=== PATIENT | female | born 1930 | race Caucasian/White ===

== ENCOUNTER 2016-10-06 06:21 | Emergency (ER) | payer MEDICARE, BC ==
--- NOTE | 2016-10-06 06:43 | ERNOTE ---
Abdominal HPI - Narrative Date of Service: 10/06/16 - General Chief Complaint: Abdominal Pain Time Seen by Provider: 10/06/16 06:38 Source: patient, other - accompanied by son Exam Limitations: no limitations - Immun/Allergies/Home Medications Immunizatons: IMMUNIZATION HX Immunizations Up to Date Yes History of Influenza Vaccine Yes Hx Pneumococcal Vaccination Yes Allergies/Adverse Reactions: Allergies Unobtainable Allergy (Unverified 10/06/16 06:36) Home Medications: HOME MEDICATIONS ALPRAZolam [Xanax] 0.25 mg PO BID 10/06/16 [Last Taken Unknown] Albuterol Sulfate [Ventolin HFA] 2 puff INH PRN PRN 10/06/16 [Last Taken Unknown ] Atenolol [Tenormin] 50 mg PO DAILY 10/06/16 [Last Taken Unknown] Budesonide/Formoterol Fumarate [Symbicort 80-4.5 Mcg Inhaler] 10.2 gm IH BID 02/14 [Last Taken Unknown] Calcium Carb/Magnesium Hydrox [Antacid Chewable Tablet] 1 tab PO DAILY 10/06/16 [Last Taken Unknown] Calcium Polycarbophil [Fiber Laxative] 625 mg PO DAILY 10/06/16 [Last Taken Unknown] Cholestyramine/Aspartame [Cholestyramine Light Packet] 1 dose PO DAILY 10/06/16 [Last Taken Unknown] Diltiazem HCl [Cartia Xt] 180 mg PO DAILY 10/06/16 [Last Taken Unknown] HYDROcodone/ACETAMINOPHEN [Lortab 5-325 mg Tablet] 1 each PO TID PRN #15 tablet 10/06/16 [Last Taken Unknown] Ipratropium/Albuterol Sulfate [Iprat-Albut 0.5-3(2.5) mg/3 ml] 3 ml IH QID PRN 10/06/16 [Last Taken Unknown] Latanoprost [Xalatan] 1 drop EACHEYE HS 10/06/16 [Last Taken Unknown] Pravastatin Sodium 40 mg PO HS 10/06/16 [Last Taken Unknown] Saccharomyces Boulardii [Florastor] 250 mg PO TID 10/06/16 [Last Taken Unknown] Vitamin D3 1 cap PO DAILY 10/06/16 [Last Taken Unknown] - History of Present Illness Narrative: Patient presents to ED her for pain in the stomach she was just seen in [place] ED and records reviewed. Patient's records from ED visit on 10/04/2016[facility] are reviewed: CT of chest was done and peribronchial thickening and emphysematos changes of lungs, no evidence of lobar pneumonia, compression frx of T 9 likely chronic, notable leukocytosis, treated with antibiotics, prednisone taper and antibiotic completed. Date (Duration): 10/06/16 Time (Timing): 05:00 Timing: getting worse Quality: severe, aching Activities at Onset: none Modifying Factors - (Improves): Present: analgesics Modifying Factors - (Worsens): Present: analgesics Associated Symptoms: Present: nausea - nausea is from morphine pain pill prescribed by other hospital Prior Abdominal Problems: Present: none, other - patient had increased Review of Systems - Narrative Narrative: Patient seen in [place]. She is now currently improving and anticipate will continue to improve. - Review of Systems Constitutional: Present: no symptoms reported EYE: Present: no symptoms reported ENT: Present: no symptoms reported Respiratory: Present: no symptoms reported Cardiology: Present: no symptoms reported Gastrointestinal/Abdominal: Present: nausea, abdominal pain, eating less Genitourinary: Present: no symptoms reported Musculoskeletal: Present: no symptoms reported, other - chornic low back pain espeially in Skin: Present: no symptoms reported Neurological: Present: no symptoms reported Endocrine: Present: no symptoms reported, unexplained weight loss Psych: Present: no symptoms reported - Patient's Past Medical History Patient History - Medical: No pertinent hx Patient History - Cardiac/Respiratory: COPD, Hypertension, Hyperlipidemia Patient History - Cancer: No Hx of Cancer Patient History - Surgical Procedures: Appendectomy, Cholecystectomy Patient History - Other: None - Social History Living Situations: spouse Abuse History: No History of abuse Psych History: No pertinent hx Smoking Status: Current every day smoker Have you smoked in the past 12 months: Yes Do you dip or chew tobacco: No Alcohol Use: none Drug Use: none - Immunizations Immunizations Up to Date: Yes Hx Pneumococcal Vaccination: Yes History of Influenza Vaccine: Yes Physical Exam - Physical Exam General Appearance: Present: wd/wn, no apparent distress, mild distress, other - due to pain in stomache, gi cocktail was not effective, morphine made her nauseated. , Eye Exam: Normal inspection: bilateral Ears, Nose, Throat: Present: normal ENT inspection Neck: Present: normal inspection Respiratory: Present: no respiratory distress, chest nontender Cardiovascular/Chest: Present: regular rate, rhythm, no murmur Gastrointestinal/Abdominal: Present: normal bowel sounds, nontender, no organomegaly Rectal Exam: Present: deferred Back Exam: Present: normal inspection Extremity Exam: Present: normal inspection Neurological Exam: Present: alert, oriented, normal mood/affect Skin Exam: Present: pallor Pelvic Exam: Present: deferred ED Progress - Date and Time Seen: Date and Time: 10/06/16 09:16 Lortab seems to be more effective - Results and Orders Patient's Lab Results:: I have reviewed the patient's lab results. - Vital Signs Patient's Vital Signs:: I have reviewed the patient's vital signs. Vital Signs: Vital Signs 10/06/16 06:28 Temperature 36.7 C Pulse Rate 99 Respiratory 18 Rate Blood Pressure 176/71 O2 Sat by Pulse 94 Oximetry - EKG EKG: NSR EKG read: Interp. by me - Progress/Reassessment Chief Complaint: Abdominal Pain Progress:: Improved - Transfer of Care Physician Sign Out: Chris Mulligan Pending Results: X-ray results - reviewed from [place] Departure - Departure Clinical Impression: Compression fracture, Chronic kidney disease (CKD) stage G3a/A2, moderately decreased glomerular filtration rate (GFR) between 45-59 mL/min/1.73 square meter and albuminuria creatinine ratio between 30-299 mg/g Disposition: Home self-care Condition: Fair Instructions: Spinal Compression Fracture Additional Instructions: see your doctor in 3 to 5 days Referrals: Chris Mulligan MD [Primary Care Provider] - Prescriptions: HYDROcodone/ACETAMINOPHEN [Lortab 5-325 mg Tablet] 1 each PO TID PRN #15 tablet PRN Reason: Analgesia
[2016-10-06] MEDS ORDERED: LIDOCAINE HCL 20 ML UDC MM ONE (06:53)
[2016-10-06] MEDS ORDERED: MAG HYDROX/ALUMINUM HYD/SIMETH 30 ML UDC PO ONE (07:02)
[2016-10-06] MEDS ORDERED: SUCRALFATE 1 G/10 ML UDC PO ONE (07:04)
--- OUTSIDE RECORDS SUMMARY | 2016-10-06 07:16 | XMS REPORT | Continuity of Care Document ---
:1930 Author Organization [facility] ([facility]) Address [address] [place] [address] Phone [phone] Care Team Providers Name Role Phone Chris Mulligan Primary Care Provider [phone] Source Comments This disclosure is being made pursuant to the Care Everywhere program, applicable federal and state laws, and may not contain all informaitonavailable regarding this patient.[facility] ([facility]) Active Allergies and Adverse Reactions Allergen Noted Date Severity Reactions Comments Ciprofloxacin 10/14/2015 High Nausea & Vomiting Current Medications Prescription Sig. Disp. Refills Start Date End Date Status pravastatin 40 mg tablet Take 40 mg by mouth Active at bedtime. ALPRAZolam 0.25 mg Take 0.25 mg by Active tablet mouth 2 times daily as needed. albuterol 90 Use 2 Puffs by Active mcg/Actuation inhaler inhalation every 6 hours as needed. cholecalciferol (VITAMIN Take 1,000 Units by Active D3) 1,000 unit tablet mouth daily. latanoprost 0.005 % Instill 1 Drop onto Active ophthalmic solution both eyes daily. budesonide-formoterol Use 2 Puffs by 10.2 g 1 11/02/2015 Active (SYMBICORT) 80-4.5 inhalation 2 times mcg/Actuation inhaler daily. diltiaZEM 180 mg ER Take 180 mg by Active capsule mouth daily. atenolol 50 mg tablet Take 50 mg by mouth Active daily. calcium carbonate (200 Take 200 mg by Active mg Ca) 500 mg chewable mouth daily. tablet calcium polycarbophil Take 625 mg by Active 625 mg tablet mouth daily. albuterol-ipratropium Use 3 mL by 11 07/12/2016 Active 2.5-0.5 mg/3 mL inhalation every 4 inhalation solution hours as needed for Wheezing or Shortness of breath. Active Problems Problem Noted Date Unintentional weight loss 07/10/2016 Dyspnea on exertion 07/09/2016 Pleural effusion 07/09/2016 HCAP (healthcare-associated pneumonia) 07/09/2016 Acute renal failure on dialysis 10/19/2015 Acute encephalopathy 10/19/2015 GENET (acute kidney injury) 10/15/2015 Overview: Acute dialysis Acute calculous cholecystitis 10/15/2015 Overview: Antibiotics and surgical resection Leukocytosis, unspecified 01/21/2008 Most Recent Encounters Date Type Specialty Providers Description 09/24/2016 Office Visit Med Pulmonary [facility], Chief Comp: Patient Oncology Melanie Valadez MD Reported Reason For Visit 07/09/2016 - Hospital Encounter General Care Shawna Mason, Dx: Acute renal 07/12/2016 Inpatient - Adult MD failure on dialysis Josemanuel Mc, (Primary Dx) Immunizations Name Dates Previously Given Next Due Hepatitis B, adult 11/07/2015 Social History Tobacco Use Types Packs/Day Years Used Date Current Every Day Smoker Cigarettes 0.5 70 Smokeless Tobacco: Never Used Alcohol Use Drinks/Week oz/Week Comments No 0 Standard drinks or equivalent 0.0 Last Filed Vital Signs Vital Sign Reading Time Taken Blood Pressure 112/45 07/12/2016 3:52 PM COIL WRAPPER Pulse 60 07/12/2016 3:52 PM COIL WRAPPER Temperature 36 C (96.8 F) 07/12/2016 3:52 PM COIL WRAPPER Respiratory Rate 18 07/12/2016 3:52 PM COIL WRAPPER Height 1.651 m (5' 5") 07/10/2016 12:38 AM COIL WRAPPER Weight 47.8 kg (105 lb 6.1 oz) 07/12/2016 5:42 AM COIL WRAPPER Body Mass Index 17.54 07/12/2016 5:42 AM COIL WRAPPER Oxygen Saturation 96% 07/12/2016 4:25 AM COIL WRAPPER Plan of Care Health Maintenance Due Date Last Done Comments Tdap Vaccine 1942 Lipid Disorder Screening 1949 Td Vaccine 1949 Colonoscopy 02/22/1981 Zoster Vaccine 1991 Osteoporosis Screening (DXA Bone Density) 02/24/1996 Pneumococcal Vaccine (1 of 2 - PCV13) 02/24/1996 Hepatitis B Vaccine (2 of 3 - Primary Series) 12/05/2015 11/07/2015 Influenza Vaccine: Seasonal (#1) 01/30/2016 Procedures from Last 3 Months Procedure Name Priority Date/Time Associated Comments Diagnosis ABSTRACTED BY Routine 07/17/2016 3:16 PM Pleural effusion Results for this BILLING STAFF COIL WRAPPER procedure are in the results section. Results from Last 3 Months INPATIENT PROCEDURE SERVICE - THORACENTESIS (07/17/2016 3:16 PM) Boby Rahman MD 07/17/20163:16 PM Procedure Note INPATIENT PROCEDURE SERVICE - THORACENTESIS Thoracentesis Procedure Note Procedure Date: 07/10/2016 Operation/Procedure: Left diagnostic thoracentesis Location: Inpatient Unit Primary Diagnosis: pneumonia with para pneumonic effusion Attending Staff: Dr. Felder Resident/Fellow: Marcy Urbano MD Assistants:None Consent for Operation or Procedure: Consent for procedure obtained from patient (or DPOA) on 07/10/2016.Alternatives, risks, side effects, benefits and complications explained in detail and patient was agreeable. Indications: r/o complicated parapnuemonic pleural effusion Procedural Medications:5 cc of 1% Lidocaine Description of Operation/Procedure: Procedural timeout was performed and patient identified with MRN and . Patient was placed in seated position with arms in front resting on table. The upper left back was probed with the ultasound probe and largest collection of fluid was identified. A teri was placed on the skin. The skin was then prepped with chlorhexidine and draped in usual sterile fashion. The skin, subcutaneous tissue, and the pleura were anesthetized with lidocaine using the 22G needle. The pleural space was entered with return of cloudy and yellow fluid. An 11 blade scalpel was used to make a 1 cm incision in the skin. An 18 Gauge needle with 8F catheter was then advanced through incision, over the rib and into pleural space with continous aspiration with return of cloudy and yellow fluid. The catheter was advanced over the needle into the pleural space and needle was withdrawn. A sample of 30 cc of fluid was initially collected for diagnostic studies. A manual bag drainage system was then used to collect fluid for further therapeutic purposes. A total of 200 cc was collected. The catheter was removed during patient exhalation and pressure applied over puncture site. A band aid was placed. Ultrasound was used for the ratliff portions of the procedure which included identification of diaphragm, lung, and fluid collection and an image was saved on the machine prior to commencing the procedure. The pH of the fluid was: pending Specimens: cytology, total protein, LDH, gram stain and culture, fungal smear and culture, ADA, glucose and cell count with differential Complications:Patient tolerated the procedure. There were no immediate complications. Estimated Blood Loss: Estimated blood loss was none . Marcy Urbano MD Attending Attestation. I was present for and participated in the entire procedure. Boby Felder MD BASIC METABOLIC PANEL W/ CALCIUM (CHEM 8) (07/12/2016 6:17 AM)Only the most recent of4 resultswithin the time period is included. Component Value Range Sodium 139 135-145 mEq/L Potassium 4.3 3.5-5.0 mEq/L Chloride 100 95-107 mEq/L CO2 24 22-29 mEq/L Anion Gap 15 8-18 mEq/L BUN 11 10-20 mg/dL Creatinine 3.2(H)Comment: 0.5-1.0 mg/dL Creatinine switched to enzymatic method on 11/07/2010.GFR equation switched to IDMS-traceable MDRD equation on 11/07/2010. Calculated GFR values are not valid in clinical settings where serum creatinine is changing. Glucose 88Comment: 65-99 mg/dL The Expert Committee on the Diagnosis and Classification of Diabetes has defined impaired fasting glucose as greater than or equal to 100 mg/dL but less than 126 mg/dL.(Diabetes Care 28 (Suppl 1)S41,2005) Calcium 8.1(L) 8.5-10.5 mg/dL Calculated GFR 14(L) >60 mL/min/1.73 m2 Specimen Blood CBC (COMPLETE BLOOD COUNT) (07/12/2016 6:17 AM)Only the most recent of3 resultswithin the time period is included. Component Value Range WBC Count 17.8(H) 3.7-10.5 K/MM3 RBC Count 4.10 4.00-5.20 M/MM3 Hemoglobin 11.3(L) 11.9-15.5 g/dL Hematocrit 35 35-47 % MCV (Mean Corpuscular Volume) 85 82-99 FL MCH (Mean Corpuscular Hemoglobin) 28 25-35 PG MCHC (Mean Corpuscular Hemoglobin Concentration) 32 32-36 % Platelet Count 176 150-400 K/MM3 MPV (Mean Platelet Volume) 10.0 9.4-12.3 FL RBC Dist Width-STD 46.3 36.4-46.3 FL RBC Distrib Width 14.9(H) 9.0-14.5 % Nucleated RBC 0 /100 WBC Specimen Whole Blood C. DIFFICILE TOXIN SCREEN (07/11/2016 10:17 AM) Component Value Range C. Difficle GDH Negative Negative C. Difficile Toxin NegativeComment: Negative Negative for the presence of C. difficile and C. difficile toxin. Specimen Stool HEPATITIS B SURFACE ANTIGEN (07/11/2016 6:16 AM) Component Value Range Hep B Surface Antigen Negative Negative Specimen Blood HEPATITIS C ANTIBODY (07/11/2016 6:16 AM) Component Value Range Hepatitis C Virus Antibody Negative Negative Specimen Blood HEPATITIS B CORE ANTIBODY(G&M) (07/11/2016 6:16 AM) Component Value Range Hep B Core Abs Total (IgG & IgM) Negative Negative Specimen Blood HEPATITIS B SURFACE ANTIBODY (07/11/2016 6:16 AM) Component Value Range Hep B Surface Ab, Quantitative <3.5 mIU/mL Hep B Surface Ab, Qualitative Non Reactive(A) Reactive Hep B Surface Ab, Immune Status Non-immune(A)Comment: Immune Hepatitis B surface antibody can be formed following hepatitis B infection or after hepatitis B vaccination. A reactive result is consistent with immune status to hepatitis B. Non-reactive results fla g as abnormal in Epic which indicates non-immune status to hepatitis B. A non -reactive result does NOT imply hepatitis B infection. If ordered in workup of possible hepatitis B infection, hepatitis B surface antibody results should be interpreted in conjunction with other laboratory tests (e.g., hepatitis B surface antigen), clinical history, and physical examination. Reference range: Reactive (immune): 11.5 mIU/mL or greater Indeterminate (indeterminate immune status): 8.5 to 11.4 mIU/mL Non-reactive (non-immune): Less than 8.5 mIU/mL Specimen Blood TROPONIN T (07/10/2016 7:01 PM)Only the most recent of3 resultswithin the time period is included. Component Value Range Troponin-T 0.04 <=0.10 ng/mL Specimen Blood CHEST - AP/PA (07/10/2016 4:24 PM) Impressions Findings / Impression: No pneumothorax. Minimal blunting of the left costophrenic angle may represent small residual amount of pleural fluid. Stable mild cardiomegaly. The pulmonary vasculature is normal. The lungs are normally aerated without significant atelectasis or consolidation. Bilateral calcified hilar nodes are redemonstrated. Narrative Procedure: CHEST - AP/PA Technique: Portable AP chest radiograph Comparison: Chest radiograph(s) dated: 11/01/2015, 10/21/2015. Clinical Indication: 86-year-old female status post thoracentesis. Procedure Note Mikie, Incoming Imaging Results - Tue Jul 10, 2016 5:10 PM COIL WRAPPER Procedure: CHEST - AP/PA Technique: Portable AP chest radiograph Comparison: Chest radiograph(s) dated: 11/01/2015, 10/21/2015. Clinical Indication: 86-year-old female status post thoracentesis. IMPRESSION Findings / Impression: No pneumothorax. Minimal blunting of the left costophrenic angle may represent small residual amount of pleural fluid. Stable mild cardiomegaly. The pulmonary vasculature is normal. The lungs are normally aerated without significant atelectasis or consolidation. Bilateral calcified hilar nodes are redemonstrated. ALBUMIN-OTHER (07/10/2016 4:09 PM) Component Value Range Albumin Fluid Type Pleural fluid Albumin, Other 1.1Comment: g/dL This test is not approved by the FDA for this sample type. Performance characteristics and reference range have not been verified. Results should be interpreted in conjunction with clinical findings. Specimen Other ADENOSINE DEAMINASE, PLEURAL FLUID (07/10/2016 4:09 PM) Component Value Range Adenosine Deaminase, Pleural <1.6Comment: 0.0-9.4 U/L TEST INFORMATION: Adenosine Deaminase, Pleural Fluid Test developed and characteristics determined by [facility]. See Compliance Statement B: [facility] Performed by [facility], [address] [place] [id number] [email or web address], Darryl Cason MD, Lab. Director Specimen Pleural fluid Narrative Source: PLEURAL Client Accession number: [id number] PH-OTHER BODY FLUID (07/10/2016 4:09 PM) Component Value Range pH, Fluid Type Pleural fluid pH, Other 7.54 Specimen Other GLUCOSE-OTHER (07/10/2016 4:09 PM) Component Value Range Glucose Fluid Type Pleural fluid Glucose, Other 97Comment: mg/dL This test is not approved by the FDA for this sample type. Performance characteristics and reference range have not been verified. Results should be interpreted in conjunction with clinical findings. A published study using [employer] analyzers has demonstrated that analysis of glucose in cerebrospinal fluid, dialysate, pericardial fluid, peritoneal/ascites fluid, pleural flui d, synovial fluid, and vitreous fluid shows no evidence of systematic matrix interference (Clin Biochem 48:911-914, 2014). Specimen Other BODY FLUID CELL COUNT AND DIFF (07/10/2016 4:09 PM) Component Value Range Body Fluid Type Pleural fluid Clarity, Other Hazy(A) Clear Color, Other Pale Yellow None, Yellow, Pale Yellow Total Nucleated Count, Other 2881 /MM3 RBC Count, Other 1000 /MM3 Neutrophils, Other 259 /MM3 Lymphocytes, Other 2276 /MM3 Mononucleated Cells, Other 346 /MM3 % Neutrophils, Other 9.0 % % Lymphocytes, Other 79.0 % %BF Mononucleated Cells 12.0 % Additional Findings, Fluid There are clusters of reactive mesothelial cells and scattered histocytes. These results have been reviewed by the pathologist. CTA Specimen Other TOTAL PROTEIN-OTHER (07/10/2016 4:09 PM) Component Value Range Total Protein Fluid Type Pleural fluid Total Protein, Other 2.3Comment: g/dL This test is not approved by the FDA for this sample type. Performance characteristics and reference range have not been verified. Results should be interpreted in conjunction with clinical findings. A published study using [employer] analyzers has demonstrated that analysis of total protein in cerebrospinal fluid, pericardial fluid, peritoneal/ascites fluid, pleural fluid, an d synovial fluid shows no evidence of systematic matrix interference (Clin Biochem 48:911-914, 2014). Specimen Other LACTATE DEHYDROGENASE (LDH)-OTHER (07/10/2016 4:09 PM) Component Value Range LD Fluid Type Pleural fluid LD, Other 94Comment: IU/L This test is not approved by the FDA for this sample type. Performance characteristics and reference range have not been verified. Results should be interpreted in conjunction with clinical findings. A published study using [employer] analyzers has demonstrated that analysis of LDH in cerebrospinal fluid, pericardial fluid, peritoneal/ascites fluid, pleural fluid, and synovial fluid shows no evidence of systematic matrix interference (Clin Biochem 48: 911-914, 2014). Specimen Other STERILE BODY FLUIDS CULTURE-AUTOMATED (07/10/2016 4:09 PM) Component Value Range Blood Culture No Growth Stain No organisms observed Stain Many PMN's Stain Cytospun preparation Specimen Culture - Pleural Fluid FUNGAL CULTURE (INCLUDES DIRECT STAIN) (07/10/2016 4:09 PM) Component Value Range Fungal Culture No fungi isolated Calcofluor White Stain No yeast or fungal elements observed Specimen Culture - Pleural Fluid TOTAL PROTEIN (07/10/2016 4:18 AM) Component Value Range Total Protein 5.6(L) 6.0-8.0 g/dL Specimen Blood LACTATE DEHYDROGENASE (LDH) (07/10/2016 4:18 AM) Component Value Range LDH 176 135-214 U/L Specimen Blood VANCOMYCIN DRUG LEVEL (07/10/2016 4:18 AM) Component Value Range Vancomycin Drug Level 16.3 0.0-40.0 g/mL Specimen Blood PHOSPHORUS (07/10/2016 4:18 AM) Component Value Range Phosphorus 3.2Comment:New reference range installed 04/12/15. 2.5-4.5 mg/dL Specimen Blood CT CHEST WO CONTRAST ([id number]) (07/09/2016 11:01 PM) Impressions Impression: 1. Bilateral, left larger than right (maximum depth of 3 cm on left), simple pleural effusion with lobulated contour. The appearance is nonspecific and may be seen with loculated pleural effusion and/or empyema. Correlation with ultrasound/pleural fluid analysis is suggested. 2. Bilateral, left more than right, lower lobe airspace disease. This most likely represents atelectasis, cannot exclude underlying infection. 3. Patchy areas of groundglass opacity and centrilobular nodules in the right lower lobe suggest infective or inflammatory focus. 4. Upper lobe predominant centrilobular emphysema. 5. Scattered bilateral pulmonary calcified granulomas, liver and splenic granulomas suggesting prior granulomatous disease. 6. Prominent multistation mediastinal lymph nodes, most of which show focus of calcification and are most likely reactive and calcified are related to prior granulomatous disease. 7. Noncalcified right middle lobe nodule, likely mucus fluid bronchiole. This final report is in agreement with the critical and emergent preliminary findings reported by the residential appraiser visual education director. Narrative Procedure: CT CHEST WO CONTRAST ([id number]) Clinical Indication:cough, concern for empyema vs pneumonia Technique: Chest CT without intravenous contrast. Comparison: No CT priors. Chest x-ray dated 11/01/2015, 10/21/2015 Findings: Supraclavicular, axillary, mediastinal, hilar: Prominent mediastinal lymph nodes, the largest is seen in the precarinal region measuring about 2.2 x 2 cm. Most of these prominent lymph nodes show calcification. Cardiovascular: Diffuse atherosclerotic changes of the aorta and the coronaries. No pericardial effusion. The ascending aorta is mildly prominent, measuring up to 3.9 cm in short axis. Abdomen: Calcified granulomas are seen scattered in the spleen and liver. Nonspecific of the adrenal glands without discrete nodule. Lungs, airways, pleura: Diffuse centrilobular emphysematous changes are seen best appreciated in bilateral upper lobes. Bilateral, left larger than right, pleural effusion with lobulated contour. Left lower lobe posterior segment airspace disease/atelectasis. Right lower lobe basal atelectatic changes. Patchy areas of groundglass consolidation are seen in the right upper lobe as well as the right middle lobe, subpleural in location. Right middle lobe pulmonary nodule measuring about 7 mm in diameter (3-1 69). Scattered bilateral calcified pulmonary granulomas. Chest wall, musculoskeletal: Diffuse osteopenia can limit detection of nondisplaced fractures. The vertebral body height is maintained. No destructive bony lesion. Multilevel degenerative changes of the spine. Lines and tubes: None. Procedure Note Mikie, Incoming Imaging Results - Tue Jul 10, 2016 2:48 PM COIL WRAPPER Procedure: CT CHEST WO CONTRAST ([id number]) Clinical Indication: cough, concern for empyema vs pneumonia Technique: Chest CT without intravenous contrast. Comparison: No CT priors. Chest x-ray dated 11/01/2015, 10/21/2015 Findings: Supraclavicular, axillary, mediastinal, hilar: Prominent mediastinal lymph nodes, the largest is seen in the precarinal region measuring about 2.2 x 2 cm. Most of these prominent lymph nodes show calcification. Cardiovascular: Diffuse atherosclerotic changes of the aorta and the coronaries. No pericardial effusion. The ascending aorta is mildly prominent, measuring up to 3.9 cm in short axis. Abdomen: Calcified granulomas are seen scattered in the spleen and liver. Nonspecific of the adrenal glands without discrete nodule. Lungs, airways, pleura: Diffuse centrilobular emphysematous changes are seen best appreciated in bilateral upper lobes. Bilateral, left larger than right, pleural effusion with lobulated contour. Left lower lobe posterior segment airspace disease/atelectasis. Right lower lobe basal atelectatic changes. Patchy areas of groundglass consolidation are seen in the right upper lobe as well as the right middle lobe, subpleural in location. Right middle lobe pulmonary nodule measuring about 7 mm in diameter (3-1 69). Scattered bilateral calcified pulmonary granulomas. Chest wall, musculoskeletal: Diffuse osteopenia can limit detection of nondisplaced fractures. The vertebral body height is maintained. No destructive bony lesion. Multilevel degenerative changes of the spine. Lines and tubes: None. IMPRESSION Impression: 1. Bilateral, left larger than right (maximum depth of 3 cm on left), simple pleural effusion with lobulated contour. The appearance is nonspecific and may be seen with loculated pleural effusion and/or empyema. Correlation with ultrasound/pleural fluid analysis is suggested. 2. Bilateral, left more than right, lower lobe airspace disease. This most likely represents atelectasis, cannot exclude underlying infection. 3. Patchy areas of groundglass opacity and centrilobular nodules in the right lower lobe suggest infective or inflammatory focus. 4. Upper lobe predominant centrilobular emphysema. 5. Scattered bilateral pulmonary calcified granulomas, liver and splenic granulomas suggesting prior granulomatous disease. 6. Prominent multistation mediastinal lymph nodes, most of which show focus of calcification and are most likely reactive and calcified are related to prior granulomatous disease. 7. Noncalcified right middle lobe nodule, likely mucus fluid bronchiole. This final report is in agreement with the critical and emergent preliminary findings reported by the residential appraiser visual education director. ECG - EKG 12 LEAD (07/09/2016 10:25 PM) Component Value Range ECG SEVERITY - ABNORMAL ECG - VENT. RATE 62 bpm RR 968 ms P-R INTERVAL 144 ms QRSD INTERVAL 92 ms QT INTERVAL 484 ms QTC INTERVAL 492 ms P AXIS 46 degrees QRS AXIS 12 degrees T WAVE AXIS 163 degrees REPORT SINUS RHYTHM [Now Present] ABERRANT COMPLEX PROLONGED QT INTERVAL ABNORMAL T, CONSIDER ISCHEMIA, ANT-LAT LEADS [More Prom.] [Now Absent] SINUS BRADYCARDIA Interpreting Physician: Gamal Beach MD
--- OUTSIDE RECORDS SUMMARY | 2016-10-06 07:16 | XMS REPORT | Continuity of Care Document ---
:1930 Author Organization [facility] [place] [address] Care Team Providers Name Role Phone Chris Mulligan Primary Care Provider [phone] Source Comments This disclosure is being made pursuant to the [employer] program and maynot contain all information available regarding this patient.[facility] Active Allergies and Adverse Reactions Allergen Noted Date Severity Reactions Comments Ciprofloxacin 07/26/2016 Low Nausea Only Current Medications Be aware that medications may not be up to date as of this document. Alwaysverify current medications with the patient. Prescription Sig. Disp. Refills Start End Date Status Date Hydrocodone Take 5 mLs by Active polistirex-cpm ER mouth every 12 (TUSSIONEX) 10-8 (twelve) hours. MG/5ML suspension diltiazem (CARDIZEM Take 180 mg by Active CD) 180 MG 24 hr mouth daily. capsule albuterol (PROAIR Inhale 2 puffs Active HFA;PROVENTIL into the lungs HFA;VENTOLIN HFA) every 4 (four) to 108 (90 Base) 6 (six) hours as MCG/ACT inhaler needed for Wheezing. pravastatin Take 40 mg by Active (PRAVACHOL) 40 MG mouth daily. tablet budesonide-formotero Inhale 2 puffs Active l (SYMBICORT) 80-4.5 into the lungs 2 MCG/ACT inhaler (two) times daily. atenolol (TENORMIN) Take 50 mg by Active 50 MG tablet mouth daily. albuterol Take 2.5 mg by Active (PROVENTIL) (2.5 nebulization MG/3ML) 0.083% every 4 (four) nebulizer solution hours as needed for Wheezing. DX COPD J44.9 Calcium Acetate, Take 667 mg by Active Phos Binder, 667 MG mouth 3 (three) capsule times daily. omeprazole Take 20 mg by Active (PRILOSEC) 20 MG mouth every capsule morning before breakfast. calcium carbonate Take 600 mg by Active (OS-MAGALYS) 600 MG TABS mouth daily. Cholecalciferol Take 1 tablet by Active (VITAMIN D PO) mouth daily. predniSONE Take 2 tablets by 13 tablet 0 Active (DELTASONE) 20 MG mouth daily for 7 tablet three days then take 1 tablet by mouth daily for seven days. ALPRAZolam (XANAX) Take 1 tablet 50 tablet 0 Active 0.25 MG tablet (0.25 mg total) 7 by mouth 2 (two) times daily as needed for Anxiety. latanoprost Apply 1 drop to Active (XALATAN) 0.005 % eye daily. 7 ophthalmic solution traMADol (ULTRAM) 50 Take 1 tablet (50 50 tablet 0 Active MG tablet mg total) by 7 mouth every 6 (six) hours as needed for Pain. morphine (MORPHINE Take 1 tablet (15 50 tablet 0 Active SULFATE IR) 15 MG mg total) by 7 immediate release mouth every 4 tablet (four) hours as needed for Pain. ALPRAZolam (XANAX) Take 1 tablet 50 tablet 0 09/26/19 Discontinued 0.25 MG tablet (0.25 mg total) 7 17 by mouth 2 (two) times daily as needed for Anxiety (Take one tablet by mouth twice daily if needed for anxiety). levofloxacin Take 1 tablet by 7 tablet 0 09/21/19 (LEVAQUIN) 500 MG mouth daily. 7 17 tablet Active Problems Problem Noted Date Acute low back pain 10/04/2016 Renal failure, chronic 08/27/2016 Depressive disorder 08/27/2016 Chronic bronchitis (HCC) 07/26/2016 HTN (hypertension) 07/26/2016 Mixed hyperlipidemia 07/26/2016 Resolved Problems Problem Noted Date Resolved Date Acute bronchitis 07/26/2016 08/27/2016 Most Recent Encounters Date Type Specialty Providers Description 10/04/2016 Office Visit Family Medicine Chris Mulligan, Acute bilateral low back MD pain without sciatica (Primary Dx); Simple chronic bronchitis (HCC); Shortness of breath; Renal failure, chronic, stage 5 (HCC) 09/27/2016 Office Visit Family Chris Mckeon, Acute bilateral thoracic MD back pain (Primary Dx) 09/25/2016 Refill Family Medicine Janelle Martino RN 09/13/2016 Orders Only Chris Taylor MD 09/10/2016 Orders Only Provider, Not In System 09/04/2016 Orders Only Provider, Not In System 08/27/2016 Office Visit Chris Taylor, Essential hypertension (Primary Dx); Mixed hyperlipidemia; Renal failure, chronic, stage 4 (severe) (HCC); Depressive disorder 08/21/2016 Refill Family Medicine Sapphire Napier, RMA 08/13/2016 Abstract Family Medicine Sapphire Napier, A 07/26/2016 Abstract Family Chris Mckeon MD Social History Tobacco Use Types Packs/Day Years Used Date Current Every Day Smoker 0.25 Alcohol Use Drinks/Week oz/Week Comments No Last Filed Vital Signs Vital Sign Reading Time Taken Blood Pressure 158/77 10/04/2016 8:53 AM CDT Pulse 78 10/04/2016 8:53 AM CDT Temperature 36.7 C (98 F) 10/04/2016 8:53 AM CDT Respiratory Rate 16 10/04/2016 8:53 AM CDT Height 1.651 m (5' 5") 10/04/2016 8:53 AM CDT Weight 50.349 kg (111 lb) 10/04/2016 8:53 AM CDT Body Mass Index 18.47 10/04/2016 8:53 AM CDT Oxygen Saturation 94% 10/04/2016 8:53 AM CDT Plan of Care Patient Goal Type Goal Blood Pressure Blood Pressure below 140/90 Date Type Specialty Providers Description 02/18/2017 Appointment Family Chris Mckeon MD [address] [place] [phone] (Fax) Health Maintenance Due Date Last Done Comments Tetanus/Pertussis (1 - Tdap) 1950 Well Adult Visit 1981 Zoster Vaccine 60+ 1991 Bone Density 02/24/1996 Pneumococcal High/Highest Risk 65+ (1 of 2 - PCV13) 02/24/1996 Influenza Immunization (#1) 2016 Results from Last 3 Months Comprehensive metabolic panel (08/29/2016)Laboratory Miscellaneous (08/29/2016) CBC auto differential (08/29/2016) Component Value Range WBC Count 11.5 10^3/mL RBC 4.42 10^6/L Hemoglobin 12.3 g/dL Hematocrit 40.2 % Platelets 304 K/L Specimen BLOOD Narrative See scanned results 08-29-16
[2016-10-06] MEDS ORDERED: HYDROcodone/ACETAMINOPHEN 1 EACH TABLET PO ONE (08:48)
[2016-10-06] MEDS ORDERED: HYDROcodone/ACETAMINOPHEN 1 EACH TABLET ONE (08:54)
[2016-10-06 09:55] VITALS: BP 165/65
== END 2016-10-06 09:54 | disposition home or self-care (01) ==
LOC: ER 06:21
DX: M48.50XA Collapsed vertebra, not elsewhere classified, site unspecified, initial encounter for fracture (principal); N18.3 Chronic kidney disease, stage 3 (moderate); R94.4 Abnormal results of kidney function studies; I10 Essential (primary) hypertension; E78.5 Hyperlipidemia, unspecified

== ENCOUNTER 2016-10-07 14:37 | Inpatient (IN) | payer MEDICARE, BC ==
--- NOTE | 2016-10-07 16:42 | ERNOTE ---
Back Pain ER HPI Presenting Symptoms: hx chronic back pain Time Seen by Provider: 10/07/16 16:33 Source: patient, family Immunizations: IMMUNIZATION HX Immunizations Up to Date Yes History of Influenza Vaccine Yes Hx Pneumococcal Vaccination Yes Allergies/Adverse Reactions: Allergies No Known Allergies Allergy (Verified 10/07/16 15:02) Home Medications: HOME MEDICATIONS ALPRAZolam [Xanax] 0.25 mg PO BID 10/06/16 [Last Taken Unknown] Albuterol Sulfate [Ventolin HFA] 2 puff INH PRN PRN 10/06/16 [Last Taken Unknown ] Atenolol [Tenormin] 50 mg PO DAILY 10/06/16 [Last Taken Unknown] Budesonide/Formoterol Fumarate [Symbicort 80-4.5 Mcg Inhaler] 10.2 gm IH BID 02/14 [Last Taken Unknown] Calcium Carb/Magnesium Hydrox [Antacid Chewable Tablet] 1 tab PO DAILY 10/06/16 [Last Taken Unknown] Calcium Polycarbophil [Fiber Laxative] 625 mg PO DAILY 10/06/16 [Last Taken Unknown] Cholestyramine/Aspartame [Cholestyramine Light Packet] 1 dose PO DAILY 10/06/16 [Last Taken Unknown] Diltiazem HCl [Cartia Xt] 180 mg PO DAILY 10/06/16 [Last Taken Unknown] HYDROcodone/ACETAMINOPHEN [Lortab 5-325 mg Tablet] 1 each PO TID PRN #15 tablet 10/06/16 [Last Taken Unknown] Ipratropium/Albuterol Sulfate [Iprat-Albut 0.5-3(2.5) mg/3 ml] 3 ml IH QID PRN 10/06/16 [Last Taken Unknown] Latanoprost [Xalatan] 1 drop EACHEYE HS 10/06/16 [Last Taken Unknown] Pravastatin Sodium 40 mg PO HS 10/06/16 [Last Taken Unknown] Saccharomyces Boulardii [Florastor] 250 mg PO TID 10/06/16 [Last Taken Unknown] Vitamin D3 1 cap PO DAILY 10/06/16 [Last Taken Unknown] Narrative: Patient presents with continuing lower to mid thoracic back pain. Patient was seen here yesterday after having been in [facility] where a compression fracture of T9 was found. She is unable to tolerate the pain at home now and is basically laying in bed and a borderline nonfunctional secondary to the profound pain in the lower thoracic spine area. Timing: Reports: constant, getting worse Quality/Severity: Reports: severe Location of pain: Reports: mid back Activities at Onset: Reports: none Recent Injury?: Reports: no Modifying Factors - (Improves): Reports: nothing Modifying Factors - (Worsens): Reports: upright position, movement flexion Prior Treament: Reports: treated by physician Review of Systems - Review of Systems Constitutional: Present: See HPI EYE: Present: no symptoms reported ENT: Present: no symptoms reported Respiratory: Present: no symptoms reported Cardiology: Present: no symptoms reported Gastrointestinal/Abdominal: Present: no symptoms reported Genitourinary: Present: no symptoms reported Musculoskeletal: Present: See HPI, back pain Skin: Present: no symptoms reported Neurological: Present: no symptoms reported Endocrine: Present: no symptoms reported Hematologic/Lymphatic: Present: no symptoms reported Psych: Present: no symptoms reported - Patient's Past Medical History Patient History - Medical: No pertinent hx, Other - thoracic compression fracture Patient History - Cardiac/Respiratory: COPD, Hypertension, Hyperlipidemia Patient History - Cancer: No Hx of Cancer Patient History - Surgical Procedures: Appendectomy, Cholecystectomy Patient History - Other: None - Social History Living Situations: spouse Abuse History: No History of abuse Psych History: No pertinent hx Smoking Status: Current every day smoker Have you smoked in the past 12 months: Yes Alcohol Use: none Drug Use: none - Immunizations Immunizations Up to Date: Yes Hx Pneumococcal Vaccination: Yes History of Influenza Vaccine: Yes Physical Exam - Physical Exam General Appearance: Present: wd/wn, alert, severe distress Eye Exam: Normal inspection: bilateral, PERRL: bilateral Ears, Nose, Throat: Present: normal ENT inspection, H, normal pharynx Neck: Present: normal inspection, nontender Respiratory: Present: no respiratory distress, normal breath sounds, no accessory muscle use, chest nontender, lungs clear Cardiovascular/Chest: Present: regular rate, rhythm, no murmur, normal peripheral pulses Gastrointestinal/Abdominal: Present: normal bowel sounds, nontender, nondistended, soft, no organomegaly Rectal Exam: Present: deferred Back Exam: Present: vertebral tenderness, decreased range of motion Extremity Exam: Present: normal inspection, non-tender, no edema, normal range of motion Neurological Exam: Present: alert, oriented, normal mood/affect Skin Exam: Present: normal color, warm/dry Lymphatic Exam: Present: no adenopathy ED Progress - Vital Signs Patient's Vital Signs:: I have reviewed the patient's vital signs. Vital Signs: Vital Signs 10/07/16 10/07/16 14:58 16:10 Temperature 36.3 C L Respiratory 17 Rate Blood Pressure 106/44 103/62 - Progress/Reassessment Chief Complaint: Back Pain Progress:: Unchanged Plan - Plan Plan: Patient attempted to manage her pain at home and was unsuccessful. Patient is now simply lying in bed because she is in too much pain and too weak to even get up and care for self. Will be admitted for pain management and a PT/OT evaluation. Departure Clinical Impression: Compression fracture - Departure Disposition: [facility] Condition: Fair
--- OUTSIDE RECORDS SUMMARY | 2016-10-07 16:43 | XMS REPORT | Continuity of Care Document ---
:1930 Author Organization [facility] [place] [address] Care Team Providers Name Role Phone Chris Mulligan Primary Care Provider [phone] Source Comments This disclosure is being made pursuant to the [email or web address] program and maynot contain all information available regarding this patient.[facility] Active Allergies and Adverse Reactions Allergen Noted [...] Description 02/18/2017 Appointment Family Chris Mckeon MD [address] [place] [phone] (Fax) Health Maintenance Due Date Last Done [...]
--- OUTSIDE RECORDS SUMMARY | 2016-10-07 16:44 | XMS REPORT | Continuity of Care Document ---
:1930 Author Organization [facility] ([facility]) Address [address] [place] [address] Phone [phone] Care Team Providers Name Role Phone Chris Mulligan Primary Care Provider [phone] Source Comments This disclosure is being made pursuant to the Care Everywhere program, applicable federal and state laws, and may not contain all informaitonavailable regarding this patient.[facility] ([facility]) Active Allergies and Adverse Reactions Allergen Noted [...] Taken Blood Pressure 112/45 07/12/2016 3:52 PM EQUAL OPPORTUNITY COUNSELOR Pulse 60 07/12/2016 3:52 PM EQUAL OPPORTUNITY COUNSELOR Temperature 36 C (96.8 F) 07/12/2016 3:52 PM EQUAL OPPORTUNITY COUNSELOR Respiratory Rate 18 07/12/2016 3:52 PM EQUAL OPPORTUNITY COUNSELOR Height 1.651 m (5' 5") 07/10/2016 12:38 AM EQUAL OPPORTUNITY COUNSELOR Weight 47.8 kg (105 lb 6.1 oz) 07/12/2016 5:42 AM EQUAL OPPORTUNITY COUNSELOR Body Mass Index 17.54 07/12/2016 5:42 AM EQUAL OPPORTUNITY COUNSELOR Oxygen Saturation 96% 07/12/2016 4:25 AM EQUAL OPPORTUNITY COUNSELOR Plan of Care Health Maintenance Due Date [...] Pleural effusion Results for this BILLING STAFF EQUAL OPPORTUNITY COUNSELOR procedure are in the results section. Results [...] - Tue Jul 10, 2016 5:10 PM EQUAL OPPORTUNITY COUNSELOR Procedure: CHEST - AP/PA Technique: Portable AP [...] Fluid Test developed and characteristics determined by [facility]. See Compliance Statement B: [employer] Performed by [facility], [address] [place] [id number] [email or web address], Darryl Cason MD, Lab. Director Specimen Pleural fluid Narrative Source: PLEURAL Client Accession number: [id number] PH-OTHER BODY FLUID (07/10/2016 4:09 PM) Component [...] mg/dL Specimen Blood CT CHEST WO CONTRAST ([id number]) (07/09/2016 11:01 PM) Impressions Impression: 1. Bilateral, [...] and emergent preliminary findings reported by the manager of radiology manager utilization review. Narrative Procedure: CT CHEST WO CONTRAST ([id number]) Clinical Indication:cough, concern for empyema vs pneumonia [...] - Tue Jul 10, 2016 2:48 PM EQUAL OPPORTUNITY COUNSELOR Procedure: CT CHEST WO CONTRAST ([id number]) Clinical Indication: cough, concern for empyema vs [...] and emergent preliminary findings reported by the manager of radiology manager utilization review. ECG - EKG 12 LEAD (07/09/2016 10:25 [...]
--- OUTSIDE RECORDS SUMMARY | 2016-10-07 17:10 | XMS REPORT | Continuity of Care Document ---
:1930 Author Organization [facility] [place] [address] Care Team Providers Name Role Phone Chris Mulligan Primary Care Provider [phone] Source Comments This disclosure is being made pursuant to the [employer] program and maynot contain all information available regarding this patient.[facility] Active Allergies and Adverse Reactions Allergen Noted [...] Description 02/18/2017 Appointment Family Chris Mckeon MD [address] [place] [phone] (Fax) Health Maintenance Due Date Last Done [...]
--- OUTSIDE RECORDS SUMMARY | 2016-10-07 17:10 | XMS REPORT | Continuity of Care Document ---
:1930 Author Organization [facility] ([facility]) Address [address] [place] [address] Phone [phone] Care Team Providers Name Role Phone Chris Mulligan Primary Care Provider [phone] Source Comments This disclosure is being made pursuant to the Care Everywhere program, applicable federal and state laws, and may not contain all informaitonavailable regarding this patient.[facility] ([facility]) Active Allergies and Adverse Reactions Allergen Noted [...] Taken Blood Pressure 112/45 07/12/2016 3:52 PM SOFTWARE APPLICATIONS ARCHITECT Pulse 60 07/12/2016 3:52 PM SOFTWARE APPLICATIONS ARCHITECT Temperature 36 C (96.8 F) 07/12/2016 3:52 PM SOFTWARE APPLICATIONS ARCHITECT Respiratory Rate 18 07/12/2016 3:52 PM SOFTWARE APPLICATIONS ARCHITECT Height 1.651 m (5' 5") 07/10/2016 12:38 AM SOFTWARE APPLICATIONS ARCHITECT Weight 47.8 kg (105 lb 6.1 oz) 07/12/2016 5:42 AM SOFTWARE APPLICATIONS ARCHITECT Body Mass Index 17.54 07/12/2016 5:42 AM SOFTWARE APPLICATIONS ARCHITECT Oxygen Saturation 96% 07/12/2016 4:25 AM SOFTWARE APPLICATIONS ARCHITECT Plan of Care Health Maintenance Due Date [...] Pleural effusion Results for this BILLING STAFF SOFTWARE APPLICATIONS ARCHITECT procedure are in the results section. Results [...] - Tue Jul 10, 2016 5:10 PM SOFTWARE APPLICATIONS ARCHITECT Procedure: CHEST - AP/PA Technique: Portable AP [...] Fluid Test developed and characteristics determined by [employer]. See Compliance Statement B: [employer] Performed by [facility], [address] [place] [id number] [email or web address], Darryl Cason MD, Lab. Director Specimen Pleural fluid Narrative Source: PLEURAL Client Accession number: [id number] PH-OTHER BODY FLUID (07/10/2016 4:09 PM) Component [...] mg/dL Specimen Blood CT CHEST WO CONTRAST ([id number]) (07/09/2016 11:01 PM) Impressions Impression: 1. Bilateral, [...] and emergent preliminary findings reported by the academic vice president online media director. Narrative Procedure: CT CHEST WO CONTRAST ([id number]) Clinical Indication:cough, concern for empyema vs pneumonia [...] - Tue Jul 10, 2016 2:48 PM SOFTWARE APPLICATIONS ARCHITECT Procedure: CT CHEST WO CONTRAST ([id number]) Clinical Indication: cough, concern for empyema vs [...] and emergent preliminary findings reported by the academic vice president online media director. ECG - EKG 12 LEAD (07/09/2016 [...]
[2016-10-07 19:51] LABS: Urine Appearance Slightly Cloudy; Urine Bilirubin QNS mg/dl (NEGATIVE); Urine Blood QNS /ul (NEGATIVE); Urine Color Yellow; Urine Ketone QNS mg/dL (NEGATIVE); Urine Nitrite QNS (NEGATIVE); Urine Protein QNS mg/dL (NEGATIVE); Urine Specific Gravity QNS SP.GR. (1.005-1.010); Urine Urobilinogen QNS EU/dl (NORMAL); Urine pH QNS pH (5.0-7.0)
[2016-10-07 19:52] LABS: Urine Amorphous Sediment Many - 3+ (NONE-FEW); Urine Bacteria TRACE; Urine RBC 0-5 /hpf (0-5); Urine Transitional Epi Cells Few - 1+ /hpf; Urine WBC None Seen /hpf (0-5)
[2016-10-07 19:54] LABS: Hematocrit 43.2 % (37.0-47.0); Hemoglobin 13.9 gm/dL (12.5-16.0); Mean Cell Volume 85.7 fl (78-100); Mean Corpuscular Hemoglobin 27.6 pg (27-31); Mean Corpuscular Hgb Conc 32.2 g/dl (32-36); Mean Platelet Volume 11.1 fl (6.0-9.5); Platelet Count 195 K/mm3 (150-450); Red Blood Count 5.04 M/mm3 (4.2-5.4); Red Cell Distribution Width 14.3 % (11.5-14.0); White Blood Count 20.3 K/mm3 (4.0-10.5)
[2016-10-07 20:02] LABS: Anion Gap 27.6 mmol/L (6.8-13.8); BUN/Creatinine Ratio 10.1 (9.0-21.6); Calcium * 8.9 mg/dL (7.9-10.9); Carbon Dioxide 14.7 mmol/L (24-32.6); Estimated Creat Clear 5.2; Potassium 6.3 mmol/L (3.4-4.6)
[2016-10-07 20:05] LABS: Total Cells Counted 100
[2016-10-07 20:27] LABS: Band 21 % (0-2.0); Lymphocyte 3 % (20-51); Monocyte 6 % (0-9); Neutrophil 70 % (42-75); Neutrophil # 14.2 K/mm3 (1.3-6.0); Platelet Estimate Normal (NORMAL)
[2016-10-07 20:28] LABS: Giant Platelets Trace; Microcytosis 1+
[2016-10-07] MEDS ORDERED: KETOROLAC TROMETHAMINE 30 MG/ML VIAL IV PRN (20:58)
[2016-10-07] MEDS ORDERED: ALBUTEROL SULFATE 2.5 MG/3 ML VIAL.NEB IH ONE (21:21)
[2016-10-07] MEDS: ALBUTEROL SULFATE 2.5 MG/3 ML VIAL.NEB IH PRN (21:27)
[2016-10-07] MEDS ORDERED: BISACODYL 5 MG TABLET.DR RC ONE (23:30)
--- NOTE | 2016-10-07 23:42 | HP ---
Chief Complaint - Chief Complaint Date of Service: 10/07/16 Time of Service: 23:37 Chief Complaint: "Nausea, back pain". Source of HPI- Pt; unreliable. ER provider notes, pt's medical record from [facility]. History of Present Illness: Mrs. Montejo is a 86-year-old white female patient who normally sees Dr. Chris Mulligan, a family practice physician in [place]. Patient does not appear to be a precise historian, and therefore most of the information is obtained from the ERP notes. I have no access to past medical history either as she does not see any of our providers. She is able to state that her back and abdomen hurts , but cannot elaborate further the events of her sickness. Apparently patient presented to the [facility] on the 10/04 with complaints of back pain. She had some imaging studies done there involving CT of the chest which showed lung emphysema, and compression fracture of T9 (likely chronic), no evidence of pneumonia. She was discharged from home from [facility] on antibiotics & Prednisone taper and due to supposedly an elevated WBC. She presented to the [facility] ER on 10/06 with complaints of abdominal and back pain. She was given Lortab and her pain improved and was therefore discharged on Hydrocodone and advised to follow-up with her PCP. She came back to the [facility] ER again today, , with complaints of severe back pain causing incapacitation to mobility and reported being limited to bed. At the time of physical examination, no labwork was pending. The CBC & BMP later showed she had Leukocytosis with a WBC of 20, 200, BUN CR of 72/7.16 & Pottasium level of 6.3. Off note, she receives dialysis on ,,F at a [facility] in [place]. 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 - Patient's Past Medical History Patient History - Medical: Osteoporosis, Renal Disease, Renal Failure Patient History - Cardiac/Respiratory: COPD, Hypertension, Hyperlipidemia Patient History - Cancer: No Hx of Cancer Patient History - Surgical Procedures: Appendectomy, Cholecystectomy Patient History - Other: None - Family History Mother Family History - Medical: Father Family History - Medical: Family History - Cardiac/Respiratory: History Unknown - Social History Living Situations: significant other Abuse History: No History of abuse Psych History: No pertinent hx Smoking Status: Current every day smoker Have you smoked in the past 12 months: Yes Patient requests Smoking Cessation Consult: No Initiate information on Smoking Cessation: No Alcohol Use: none Drug Use: none - Immunizations Immunizations Up to Date: Yes Hx Pneumococcal Vaccination: Yes History of Influenza Vaccine: Yes Review Of Systems (GEN) - Review of Systems Additional Comments: ROS unobtainable due to AMS. Immunizations: IMMUNIZATION HX Immunizations Up to Date Yes History of Influenza Vaccine Yes Hx Pneumococcal Vaccination Yes Allergies/Adverse Reactions: Allergies Allergy/AdvReac Type Severity Reaction Status Date / Time No Known Allergies Allergy Verified 10/07/16 15:02 Home Medications: HOME MEDICATIONS ALPRAZolam [Xanax] 0.25 mg PO BID PRN 10/06/16 [Last Taken Unknown] Albuterol Sulfate [Ventolin HFA] 2 puff INH Q6H PRN 10/06/16 [Last Taken Unknown ] Atenolol [Tenormin] 50 mg PO DAILY 10/06/16 [Last Taken Unknown] Budesonide/Formoterol Fumarate [Symbicort 80-4.5 Mcg Inhaler] 2 puff IH BID 02/14 [Last Taken Unknown] Calcium Carb/Magnesium Hydrox [Antacid Chewable Tablet] 1 tab PO DAILY 10/06/16 [Last Taken Unknown] Calcium Polycarbophil [Fiber Laxative] 625 mg PO DAILY 10/06/16 [Last Taken Unknown] Cholestyramine/Aspartame [Cholestyramine Light Packet] 1 dose PO DAILY 10/06/16 [Last Taken Unknown] Diltiazem HCl [Cartia Xt] 180 mg PO DAILY 10/06/16 [Last Taken Unknown] HYDROcodone/ACETAMINOPHEN [Lortab 5-325 mg Tablet] 1 each PO TID PRN #15 tablet 10/06/16 [Last Taken Unknown] Ipratropium/Albuterol Sulfate [Iprat-Albut 0.5-3(2.5) mg/3 ml] 3 ml IH Q4H PRN 10/06/16 [Last Taken Unknown] Latanoprost [Xalatan] 1 drop EACHEYE HS 10/06/16 [Last Taken Unknown] Pravastatin Sodium 40 mg PO HS 10/06/16 [Last Taken Unknown] Saccharomyces Boulardii [Florastor] 250 mg PO TID 10/06/16 [Last Taken Unknown] Vitamin D3 1 cap PO DAILY 10/06/16 [Last Taken Unknown] Ondansetron HCl [Zofran] 4 mg PO Q6H PRN 10/07/16 [Last Taken Unknown] Exam - Exam Vital Signs: Vital Signs - Last Taken Temp 36.6 C 10/07/16 22:58 Pulse 86 10/07/16 22:58 Resp 28 H 10/07/16 22:58 BP 88/41 10/07/16 22:58 Pulse Ox 97 10/07/16 22:58 Constitutional: Present: Alert - to self only., Cooperative, Mild distress, Thin and frail ENT Exam: Present: hearing grossly normal, dry mucous membranes, other - Poor dentition.. Absent: nasal congestion, nasal drainage Eye Exam: bilateral eye: normal inspection, PERRL Neck: Present: full range of motion, supple, normal inspection, trachea midline Back Exam: Present: normal inspection, other - Tenderness on mid back Breasts: Present: Exam deferred Respiratory: Present: lungs clear, no accessory muscle use, No rales Cardiovascular/Chest: Present: no chest tenderness, no edema, no murmur, tachycardia Abdomen: Present: tender - all over the abd., guarding - All over /Rectal: Present: Exam deferred Extremity: Present: no pedal edema, other - Cyanotic finger digits & nail bed, purplish/bluish bila. feet Skin Exam: Present: pallor Lymphatic: Present: no adenopathy Neurologic: Present: alert, normal mood/affect, disoriented x 3. Absent: abnormal gait, facial droop, motor weakness, dizzy/light-headedness Appearance: Present: disheveled, impaired insight Eye contact: Present: cooperative, good eye contact, normal speech Thoughts: Present: no apparent hallucination Diagnostic Studies: Abnormal Lab Results 10/07/16 10/07/16 10/07/16 Range/Units 19:40 19:47 19:47 WBC 20.3 H (4.0-10.5) K/mm3 RDW 14.3 H (11.5-14.0) % MPV 11.1 H (6.0-9.5) fl Band Neuts % (Manual) 21 H (0-2.0) % Lymphocytes % (Manual) 3 L (20-51) % Neutrophils # (Manual) 14.2 H (1.3-6.0) K/mm3 Lymphocytes # (Manual) 0.6 L (1.5-3.5) k/mm3 Monocytes # (Manual) 1.2 H (0.0-1.0) k/mm3 Potassium 6.3 H (3.4-4.6) mmol/L Carbon Dioxide 14.7 L (24-32.6) mmol/L Anion Gap 27.6 H (6.8-13.8) mmol/L BUN 72 H (3-23) mg/dL Creatinine 7.16 H (0.4-1.4) mg/dL Est GFR (Non-Af Amer) 6 L (60-130) mL/min Random Glucose 60 L (70-110) mg/dL Ur Transition Epith Cell Few - 1+ H (NONE) /hpf Amorphous Sediment Many - 3+ H (NONE-FEW) Laboratory Results WBC 20.3 K/mm3 (4.0-10.5) H 10/07/16 19:47 RBC 5.04 M/mm3 (4.2-5.4) 10/07/16 19:47 Hgb 13.9 gm/dL (12.5-16.0) 10/07/16 19:47 Hct 43.2 % (37.0-47.0) 10/07/16 19:47 MCV 85.7 fl (78-100) 10/07/16 19:47 MCH 27.6 pg (27-31) 10/07/16 19:47 MCHC 32.2 g/dl (32-36) 10/07/16 19:47 RDW 14.3 % (11.5-14.0) H 10/07/16 19:47 Plt Count 195 K/mm3 (150-450) 10/07/16 19:47 MPV 11.1 fl (6.0-9.5) H 10/07/16 19:47 Neutrophils % (Manual) 70 % (42-75) 10/07/16 19:47 Band Neuts % (Manual) 21 % (0-2.0) H 10/07/16 19:47 Lymphocytes % (Manual) 3 % (20-51) L 10/07/16 19:47 Monocytes % (Manual) 6 % (0-9) 10/07/16 19:47 Neutrophils # (Manual) 14.2 K/mm3 (1.3-6.0) H 10/07/16 19:47 Lymphocytes # (Manual) 0.6 k/mm3 (1.5-3.5) L 10/07/16 19:47 Monocytes # (Manual) 1.2 k/mm3 (0.0-1.0) H 10/07/16 19:47 Platelet Estimate Normal (NORMAL) 10/07/16 19:47 Giant Platelets Trace 10/07/16 19:47 Microcytosis 1+ 10/07/16 19:47 Sodium 133 mmol/L (132-142) 10/07/16 19:47 Plasma Sodium 132 mmol/L (130-142) 10/07/16 19:47 Potassium 6.3 mmol/L (3.4-4.6) H 10/07/16 19:47 Chloride 97 mmol/L (97-106) 10/07/16 19:47 Carbon Dioxide 14.7 mmol/L (24-32.6) L 10/07/16 19:47 Anion Gap 27.6 mmol/L (6.8-13.8) H 10/07/16 19:47 BUN 72 mg/dL (3-23) H 10/07/16 19:47 Creatinine 7.16 mg/dL (0.4-1.4) H 10/07/16 19:47 Est GFR (Non-Af Amer) 6 mL/min (60-130) L 10/07/16 19:47 BUN/Creatinine Ratio 10.1 (9.0-21.6) 10/07/16 19:47 Random Glucose 60 mg/dL (70-110) L 10/07/16 19:47 Calcium 8.9 mg/dL (7.9-10.9) 10/07/16 19:47 Urine Color Yellow 10/07/16 19:40 Urine Appearance Slightly cloudy 10/07/16 19:40 Urine pH QNS 10/07/16 19:40 Ur Specific [place] QNS 10/07/16 19:40 Urine Protein QNS 10/07/16 19:40 Urine Glucose (UA) QNS 10/07/16 19:40 Urine Ketones QNS 10/07/16 19:40 Urine Blood QNS 10/07/16 19:40 Urine Nitrate QNS 10/07/16 19:40 Urine Bilirubin QNS 10/07/16 19:40 Urine Urobilinogen QNS 10/07/16 19:40 Ur Leukocyte Esterase QNS 10/07/16 19:40 Urine RBC 0-5 /hpf (0-5) 10/07/16 19:40 Urine WBC None seen /hpf (0-5) 10/07/16 19:40 Ur Epithelial Cells 0-5 /hpf (0-5) 10/07/16 19:40 Ur Transition Epith Cell Few - 1+ /hpf (NONE) H 10/07/16 19:40 Amorphous Sediment Many - 3+ (NONE-FEW) H 10/07/16 19:40 Urine Bacteria Trace (NONE) 10/07/16 19:40 Urine Culture Comments No culture indicated 10/07/16 19:40 Assessment/Plan - Narrative Narrative: Mrs. Montejo is a 86-yr-old [place] pt who had presented to the [facility] with complaints of back pain that was severe and was incapacitating her mobility. Her pain, while at the ED was thought to have have been related to a compression fracture on T9 seen on a prior imaging test at a local hospital. The plan was to admit for pain control and to involve PT/OT. However, during physical examination, the patient reported that she had also been having abdominal pain, but she constantly moaned about back pain. The physical exam revealed tenderness throughout, with very notable guarding even with the slightest/gentle hand touch. An abdominal X-ray was obtained, and it showed there were areas on the colon with air-fluid. CT of the abdomen was needed for better definition/ imaging of SBO and other acute abdominal differential diagnoses. I spoke with the radiologist who expressed that the pt's imaging of the Abdomen was a poorly visualized imaging, and in part due to lack of use of contrast. On the other hand, pt's known history of Stage 5 renal disease is a contraindication to oral contrast use Therefore, life threatening diagnosis such as bowel ischemia, or several other etiologies that could demand urgent operative interventions could not be ruled out. There were several fluid filled areas seen on the CT that may have suggested infection or inflammatory process. The pt's elevated WBC, lactic acid, severe abd. pain supported the finding. Given the acute abdominal finding's, pursuing further treatment that may involve surgery would not be logical or advisable given the pt's malnourished state, advanced age, stage 5 CKD & DM II. Furthermore treating/managing acute abdominal infection with antibiotics would not necessarily be beneficial or contribute pt's improved outcome as most antibiotics are metabolized by the Kidneys and with her eGFR, of 6, half-life of the drugs could be significantly increased, and infection would not be targeted well. Assessments/plan 1.) Acute Abdomen. Plan as discussed above 2.) Syncope Sometime at 2100, Dr. Ruiz was initiated. Nursing reported pt having slurring words and became unresponsive to verbal or external stimuli during transfer. Pt had poor peripheral pulses making it difficult to obtain accurate B/P, but had shallow breathing. GCS score of 3. All finger digits were cyanotic and feet were purplish/bluish. Was given IVF bolus of NS. B/P became obtainable 86/32., however she had desaturated to 63%. ABG were unable to be obtained due to poor palpable pulses. Neb treatment was given and was switched to NRB with 15 L bleeding in. She was able to recuperate to 100% and slowly started following commands., but noted to have no line haul driver on RT Hand. Head CT obtained and there was no obvious CVA. Pt examined upon return from head CT and appeared back to baseline. Was alert & oriented x 3 and conversation was clear, line haul driver was equal in both RT & LT hands. While performing Orthostatic V.S at approximately 0200 pt developed similar episode when changing to sitting position. I started making arrangements to transfer pt to an outside facility with dialysis capabilities. I also spoke to the son STEPHANE Ha) about plan of care and the need to transfer pt to another hospital. He asked the pt remain admitted to our hospital until morning to transfer. He planned to call me back after discussing with his father about the need to do so. When he called back to state that I go ahead with the transfer, I also informed him about the urgent need to come to the hospital given the declining state of their loved one. She had changing V.S B/P readings; 46/35, 78, and remained unresponsive. I had also managed to get a hold of a physician at the [facility], who upon listening to the pt's case, doubted if there would be any better outcome given the fact that pt would not be a surgical candidate with the acute abdomen and with signs of organ failure. I did gather the family to initiate the talks of transitioning to comfort cares. I informed them of the dropping blood pressures and the fact that IVF hydration to keep the B/P up would overwhelm the already damaged kidneys and would be difficult to balance the fluid, thus leading to fluid accumulation in the lungs and leading to respiratory distress. I also explained that fact that her infection in the abdomen was also a major complicating factor in the treatment and she was showing signs of sepsis from the infection. They all seemed to verbalize the understanding but wanted to talk amongst themselves and to make sure they were all in agreement. This took more time as other family member not present at the hospital had to be involved. I offered to continue treatment with IV antibiotics and IVF hydration to maintain the BP, while they talked/discussed. It was approaching morning hours and no definitive response was clear from family. Several lab results were coming back with critical values that would demand aggressive measures. I discussed the pt's case with one of the overseeing physicians, Dr. Tata Cisneros, who had a lengthy discussion with the family about the poor prognosis given the presentation of acute abdomen. The family all opted de-escalate medical treatment to comfort care measures. Emotional support offered to the family. 3.) Abdominal pain. Even though pt appeared to be in a semi- conscious state, she sighed in pain. I also discussed the dilemma with the family that if we gave her pain medications , her pain would be in control, but then the risk was further hypotension and even more sedation, which is why it would be imperative to transition to comfort cares to alleviate pain and suffering . They did verbalize the understanding of what their loved one may be dealing with. - Assessment/Plan (1) Acute abdomen Problem: Acute (2) Uremic encephalopathy Problem: Acute (3) Syncope Problem: Acute Qualifiers: Syncope type: unspecified Qualified Code(s): R55 - Syncope and collapse (4) Chronic kidney disease, stage 5, kidney failure Problem: Chronic (5) Altered mental status Problem: Acute Qualifiers: Altered mental status type: unspecified Qualified Code(s): R41.82 - Altered mental status, unspecified (6) Compression fracture Problem: Chronic
[2016-10-07] MEDS ORDERED: BISACODYL 10 MG SUPP.RECT RC ONE ×2 (23:55→23:56)
[2016-10-07] MEDS ORDERED: POLYETHYLENE GLYCOL 3350 119 GM BTL ONE (23:55)
[2016-10-08] MEDS ORDERED: ALPRAZolam 0.25 MG TABLET PO PRN (00:30)
[2016-10-08] MEDS ORDERED: ALBUTEROL SULFATE 200 PUFF INHALER IH PRN (00:30)
[2016-10-08] MEDS ORDERED: ONDANSETRON HCL 4 MG TABLET PO PRN (00:30)
[2016-10-08] MEDS ORDERED: ALBUTEROL SULFATE/IPRATROPIUM 3 ML NEBU IH PRN (00:30)
[2016-10-08] MEDS ORDERED: HYDROcodone/ACETAMINOPHEN 1 EACH TABLET PO PRN (00:30)
[2016-10-08] MEDS: ALBUTEROL SULFATE 2.5 MG/3 ML VIAL.NEB IH PRN (02:06)
[2016-10-08] MEDS ORDERED: NORMAL SALINE 1,000 ML IV ONE (03:33)
[2016-10-08] MEDS ORDERED: metroNIDAZOLE/SODIUM CHLORIDE 500 MG/100 ML BAG IV SCH (04:30)
[2016-10-08 05:27] LABS: Hemoglobin 12.7 gm/dL (12.5-16.0); Mean Corpuscular Hemoglobin 27.1 pg (27-31); Mean Corpuscular Hgb Conc 28.9 g/dl (32-36); Mean Platelet Volume 11.9 fl (6.0-9.5); Platelet Count 177 K/mm3 (150-450); Red Blood Count 4.68 M/mm3 (4.2-5.4); Red Cell Distribution Width 14.6 % (11.5-14.0); White Blood Count 20.4 K/mm3 (4.0-10.5)
[2016-10-08 05:35] LABS: Total Cells Counted 100
[2016-10-08 05:47] LABS: Albumin * 1.9 gm/dl (3.4-5.0); Anion Gap 30.6 mmol/L (6.8-13.8); BUN/Creatinine Ratio 9.5 (9.0-21.6); Bilirubin, Total 0.5 mg/dL (0.0-1.1); Ca. Corrected For Albumin 10.1 mg/dL (8.4-10.2); Calcium * 8.7 mg/dL (7.9-10.9); Carbon Dioxide 15.5 mmol/L (24-32.6)
[2016-10-08] MEDS ORDERED: DEXTROSE 50%-WATER 50 ML SYRG ONE (06:07)
[2016-10-08] MEDS: DEXTROSE 50%-WATER 50 ML SYRG IV ONE ×2 (06:18→06:19)
[2016-10-08 06:20] LABS: Potassium 8.1 mmol/L (3.4-4.6)
[2016-10-08 06:30] LABS: Band 36 % (0-2.0); Immature Granulocyte 4 (0-1); Lymphocyte 7 % (20-51)
[2016-10-08] MEDS ORDERED: DEXTROSE 10 % IN WATER 1,000 ML IV SCH (06:30)
[2016-10-08 06:31] LABS: Monocyte 1 % (0-9); Neutrophil 52 % (42-75); Neutrophil # 10.6 K/mm3 (1.3-6.0); Platelet Estimate Normal (NORMAL)
[2016-10-08 06:32] LABS: Howell-Jolly Bodies Trace; Hypochromia Trace; Toxic Granulation 1+
[2016-10-08] MEDS ORDERED: FLUTICASONE/SALMETEROL 14 PUFF DISK.W.DEV IH SCH (07:00)
[2016-10-08 07:15] VITALS: BP 82/42
[2016-10-08] MEDS ORDERED: PIPERACILLIN SODIUM/TAZOBACTAM 3.375 GM in DEXTROSE 5 % IN WATER 100 ML IV SCH ×2 (07:15)
[2016-10-08] MEDS ORDERED: ATROPINE SULFATE 150 DROP BTL SL PRN (07:24)
[2016-10-08] MEDS ORDERED: ONDANSETRON HCL/PF 2 MG/ML VIAL IV PRN (07:24)
[2016-10-08] MEDS ORDERED: LORazepam 2 MG/ML DISP.SYRIN IV PRN (07:24)
[2016-10-08] MEDS ORDERED: POLYVINYL ALCOHOL 150 DROP BTL EACHEYE PRN (07:24)
[2016-10-08] MEDS ORDERED: LORazepam 2 MG/ML DISP.SYRIN IV ONE (07:26)
[2016-10-08] MEDS: HYDROmorphone HCL 2 MG/ML VIAL IV PRN ×2 (07:42→09:28)
[2016-10-08] MEDS ORDERED: CALCIUM CARBONATE 500 MG TAB.CHEW PO SCH (09:00)
[2016-10-08] MEDS ORDERED: CHOLECALCIFEROL 1,000 UNIT CAPSULE PO SCH (09:00)
[2016-10-08] MEDS ORDERED: PIPERACILLIN SODIUM/TAZOBACTAM 4.5 GM VIAL IV SCH (09:00)
[2016-10-08] MEDS ORDERED: ATENOLOL 50 MG TABLET PO SCH (09:00)
[2016-10-08] MEDS ORDERED: DILTIAZEM HCL 180 MG CAP.SR.24H PO SCH (09:00)
[2016-10-08] MEDS ORDERED: SACCHAROMYCES BOULARDII 250 MG CAPSULE PO SCH (09:00)
[2016-10-08] MEDS ORDERED: CHOLESTYRAMINE/ASPARTAME 4 GM PACKET PO SCH (09:00)
[2016-10-08] MEDS ORDERED: HYDROPHILIC OINTMENT 454 APPL JAR TP SCH (09:00)
[2016-10-08] MEDS ORDERED: POLYETHYLENE GLYCOL 3350 119 GM BTL PO SCH (09:00)
[2016-10-08] MEDS ORDERED: CALCIUM POLYCARBOPHIL 625 MG TABLET PO SCH (09:00)
--- NOTE | 2016-10-08 10:54 | PN ---
Subjective - Date and Time Seen Date: 10/08/16 Time: 07:35 Subjective Narrative: Patient admitted overnight with thoracic back pain. Overnight determined to have an acute abdomen, elevated lactic acid, altered mental status and dialysis fistula failure. Dr. Cisneros spoke with family regarding continuation of care and further interventions in [place] vs comfort cares. family has elected to do comfort cares. Objective Objective Narrative: unable to obtain ROS due to pt's altered mental status - Vitals Vitals: Last Vital Signs Temp 35.9 C L 10/08/16 02:15 Pulse 94 10/08/16 07:14 Resp 24 H 10/08/16 07:14 BP 82/42 10/08/16 07:14 Pulse Ox 98 10/08/16 07:58 - Abnormal Lab Findings Abnormal Lab Findings: Abnormal Lab Results 10/07/16 10/07/16 10/07/16 Range/Units 19:40 19:47 19:47 WBC 20.3 H (4.0-10.5) K/mm3 MCHC (32-36) g/dl RDW 14.3 H (11.5-14.0) % MPV 11.1 H (6.0-9.5) fl Band Neuts % (Manual) 21 H (0-2.0) % Lymphocytes % (Manual) 3 L (20-51) % Immature Granulocytes (0-1) Neutrophils # (Manual) 14.2 H (1.3-6.0) K/mm3 Lymphocytes # (Manual) 0.6 L (1.5-3.5) k/mm3 Monocytes # (Manual) 1.2 H (0.0-1.0) k/mm3 Potassium 6.3 H (3.4-4.6) mmol/L Carbon Dioxide 14.7 L (24-32.6) mmol/L Anion Gap 27.6 H (6.8-13.8) mmol/L BUN 72 H (3-23) mg/dL Creatinine 7.16 H (0.4-1.4) mg/dL Est GFR (Non-Af Amer) 6 L (60-130) mL/min Random Glucose 60 L (70-110) mg/dL Lactic Acid, Venous (0.4-1.9) mmol/L AST (0-48) U/L Alkaline Phosphatase (50-170) U/L Total Protein (6.2-8.2) gm/dL Albumin (3.4-5.0) gm/dl Ur Transition Epith Cell Few - 1+ H (NONE) /hpf Amorphous Sediment Many - 3+ H (NONE-FEW) 10/08/16 10/08/16 10/08/16 Range/Units 05:20 05:20 05:20 WBC 20.4 H (4.0-10.5) K/mm3 MCHC 28.9 L (32-36) g/dl RDW 14.6 H (11.5-14.0) % MPV 11.9 H (6.0-9.5) fl Band Neuts % (Manual) 36 H (0-2.0) % Lymphocytes % (Manual) 7 L (20-51) % Immature Granulocytes 4 H (0-1) Neutrophils # (Manual) 10.6 H (1.3-6.0) K/mm3 Lymphocytes # (Manual) 1.4 L (1.5-3.5) k/mm3 Monocytes # (Manual) (0.0-1.0) k/mm3 Potassium 8.1 H* D (3.4-4.6) mmol/L Carbon Dioxide 15.5 L (24-32.6) mmol/L Anion Gap 30.6 H (6.8-13.8) mmol/L BUN 68 H (3-23) mg/dL Creatinine 7.14 H (0.4-1.4) mg/dL Est GFR (Non-Af Amer) 6 L (60-130) mL/min Random Glucose 5 L* D (70-110) mg/dL Lactic Acid, Venous 13.5 H* (0.4-1.9) mmol/L AST 118 H (0-48) U/L Alkaline Phosphatase 289 H (50-170) U/L Total Protein 6.0 L (6.2-8.2) gm/dL Albumin 1.9 L (3.4-5.0) gm/dl Ur Transition Epith Cell (NONE) /hpf Amorphous Sediment (NONE-FEW) - Exam Constitutional: Present: Somnolent, Obtunded, Other - moaning and grunting at times, Elderly ENT Exam: Present: dry mucous membranes Neck: Present: supple Breasts: Present: Exam deferred Respiratory: Present: respiratory distress, rales, rhonchi, other - agonal breathing Cardiovascular/Chest: Present: regular rate, rhythm, no chest tenderness Abdomen: Present: tender, rigidity, distended /Rectal: Present: Exam deferred Extremity: Present: normal inspection, no pedal edema Skin Exam: Present: warm/dry, no cyanosis Neurologic: Present: other - non-verbal, grunting Assessment/Plan Plan Narrative: Jennifer is a 86 year old woman admitted with back pain / thoracic compression fx. Overnight diagnosed with an acute abdomen and evolving sepsis with mental status changes. offered to transfer the patient via [facility] to [place] but the family has declined. Instead they wish to persue comfort care measures. orders given. support provided. - Problems/Diagnosis (1) End of life care Problem: Acute (2) Acute renal failure superimposed on stage 5 chronic kidney disease, not on chronic dialysis Problem: Acute (3) Altered mental status Problem: Acute Qualifiers: Altered mental status type: unspecified Qualified Code(s): R41.82 - Altered mental status, unspecified (4) Compression fracture Problem: Acute (5) Leukocytosis Problem: Acute Qualifiers: Leukocytosis type: unspecified Qualified Code(s): D72.829 - Elevated white blood cell count, unspecified (6) Syncope Problem: Acute Qualifiers: Syncope type: unspecified Qualified Code(s): R55 - Syncope and collapse (7) Sepsis Problem: Acute Qualifiers: Sepsis type: sepsis due to unspecified organism Qualified Code(s): A41.9 - Sepsis, unspecified organism (8) Acute abdomen Problem: Acute
--- NOTE | 2016-10-08 11:07 | DS ---
Discharge Summary - Provider Primary Care Provider: Angélica Wright Admitting Clinician: Maulik Millard Attending Physician on Admission: Tata Cisneros Pronouncing Clinician: Zhane Hurley - Date and Time Date of : 09/29/16 Time of : 10:42 - Diagnosis/Cause of (1) End of life care Problems: Acute (2) Acute renal failure superimposed on stage 5 chronic kidney disease, not on chronic dialysis Problems: Acute (3) Altered mental status Problems: Acute (4) Compression fracture Problems: Acute (5) Leukocytosis Problems: Acute (6) Syncope Problems: Acute (7) Sepsis Problems: Acute (8) Acute abdomen Problems: Acute - Summary Details (narrative): Patient admitted overnight with thoracic back pain. Overnight determined to have an acute abdomen, elevated lactic acid, altered mental status and dialysis fistula failure. Dr. Cisneros spoke with family regarding continuation of care and further interventions in [place] vs comfort cares. family has elected to do comfort cares. comfort cares was initiated. patient passed on 10/08/16 at 1042. Procedures Performed: none - Additional Data Confirmation of as documented by pronouncing clinician: no pulse, no respirations, no heart sounds, pupils fixed and dilated Family: at bedside Attending/PCP notified: Yes Attending physician: Tata Cisneros Was code activated: No Autopsy requested: No Chairman And Chief Executive Officer notified: Yes [employer] notified: Yes Advance Directives: Yes Hospice patient: No
[2016-10-08] MEDS ORDERED: LATANOPROST 25 DROP BTL EACHEYE SCH (21:00)
[2016-10-08] MEDS ORDERED: SIMVASTATIN 20 MG TABLET PO SCH (21:00)
[2016-10-09] MEDS ORDERED: POLYETHYLENE GLYCOL 3350 119 GM BTL PO SCH ×2 (09:00→21:00)
== END 2016-10-08 11:49 | disposition expired | DRG 872 ==
LOC: ER 14:37 → MS 17:03 → OBSVTOIN 17:03 → MS 10-08 07:50
PROVIDERS: ADMIT Nurse Practitioner Critical Care Medicine; ATTEND Family Medicine
DX: A41.9 Sepsis, unspecified organism (principal); I12.0 Hypertensive chronic kidney disease with stage 5 chronic kidney disease or end stage renal disease; N18.5 Chronic kidney disease, stage 5; D72.829 Elevated white blood cell count, unspecified; R55 Syncope and collapse; R41.82 Altered mental status, unspecified; E78.5 Hyperlipidemia, unspecified; F17.210 Nicotine dependence, cigarettes, uncomplicated; M48.50XD Collapsed vertebra, not elsewhere classified, site unspecified, subsequent encounter for fracture with routine healing; Z99.2 Dependence on renal dialysis